=== PATIENT | male | born 1950 | race Hispanic/Latino ===

== ENCOUNTER 2018-06-26 17:01 | Emergency (ER) | payer MEDICARE ==
[2018-06-26] MEDS ORDERED: ONDANSETRON HCL 4 MG/2 ML VIAL ONE (17:30)
[2018-06-26] MEDS ORDERED: MORPHINE SULFATE 4 MG/1ML SYG ONE (17:31)
[2018-06-26 17:35] LABS: BASOPHILS % (AUTO) 0.2 % (0.0-5.0); EOSINOPHILS % (AUTO) 0.7 % (0.0-8.0); HEMATOCRIT 40.8 % (42-54); LYMPHOCYTES % (AUTO) 10.1 % (21.0-51.0); MEAN CORPUSCULAR HEMOGLOBIN 28.1 pg (27.0-33.0); MEAN CORPUSCULAR HGB CONC 33.5 g/dL (32.0-36.0); MEAN CORPUSCULAR VOLUME 83.9 fL (79-99); MONOCYTES % (AUTO) 4.5 % (3.0-13.0); NEUTROPHILS % (AUTO) 84.5 % (40.0-77.0); NUCLEATED RED BLOOD CELLS 0.1 % (0.0-0.19); PLATELET COUNT (AUTO) 234 K/uL (130-400); RED BLOOD CELL COUNT(AUTO) 4.86 MIL/uL (4.50-6.20); RED CELL DISTRIBUTION WIDTH 13.5 % (11.0-15.5); WHITE BLOOD COUNT (AUTO) 12.7 K/uL (4.8-10.8)
[2018-06-26 18:08] LABS: CREATININE 1.2 mg/dL (0.5-1.5); POTASSIUM 3.5 mmol/L (3.5-5.1)
[2018-06-26 18:13] LABS: ALBUMIN 3.8 g/dL (3.5-5.0); BILIRUBIN,TOTAL 0.5 mg/dL (0.2-1.0); TOTAL PROTEIN, SERUM 7.3 g/dL (6.0-8.3)
[2018-06-26 18:37] LABS: APPEARANCE,URINE Clear (CLEAR); BILIRUBIN,URINE Negative (NEGATIVE); COLOR,URINE Yellow (YELLOW); GLUCOSE, URINE (UA) Negative (NEGATIVE); KETONES,URINE Negative (NEGATIVE); LEUKOCYTE ESTERASE ,URINE Negative (NEGATIVE); NITRATE,URINE Negative (NEGATIVE); OCCULT BLOOD,URINE Negative (NEGATIVE); PH,URINE 8.5 (5.0-8.0); PROTEIN,URINE Negative (NEGATIVE); UROBILINOGEN,URINE 0.2 mg/dL (0.2-1.0)
[2018-06-26 18:39] LABS: PARTIAL THROMBOPLASTIN TIME 23.5 SEC (26.3-35.5)
[2018-06-26 19:09] LABS: INR 0.97 (0.85-1.15); PROTHROMBIN TIME 10.2 SEC (9.6-11.6)
[2018-06-26] MEDS ORDERED: CLINDAMYCIN 300 MG/D5W 50 ML 50 ML IV ONE (20:22)
== END 2018-06-26 21:43 | disposition home or self-care (01) ==
LOC: EDH 17:01
DX: K11.21 Acute sialoadenitis (principal); R11.2 Nausea with vomiting, unspecified; R79.1 Abnormal coagulation profile; E11.9 Type 2 diabetes mellitus without complications; I10 Essential (primary) hypertension; E78.5 Hyperlipidemia, unspecified
CPT/HCPCS: 36415; 70450; 70491; 71045; 80053; 81003; 83690; 84484; 85025; 85610; 85730; 93005; 96365; 96375; 99284; J2270; J2405; J3490